=== PATIENT | female | born 1990 | race Two or more races ===

== ENCOUNTER 2019-05-14 20:19 | Inpatient (IN) | payer OTHER ==
[~2019-05-14] VITALS: Ht 167.6 cm; Wt 133.0 kg
[2019-05-14] MEDS ORDERED: IPRATROPIUM BROM 0.5 MG/2.5ML INH SOL HHN ONE (20:30)
[2019-05-14] MEDS ORDERED: methylPREDNISolone SOD SUCC 125 MG/2 ML VL IV ONE (20:30)
[2019-05-14] MEDS ORDERED: ALBUTEROL SULF 2.5 MG/0.5ML(0.5%) NEB SOLN HHN ONE (20:30)
[2019-05-14] MEDS ORDERED: SODIUM CHLORIDE 0.9% 1,000 ML IV ONE (20:30)
[2019-05-14] MEDS ORDERED: TERBUTALINE SULFATE 1 MG/ML 1ML VIAL SC ONE (20:30)
[2019-05-14] MEDS: MAGNESIUM SULFATE 1GM/100ML 100 ML IV SCH ×2 (20:48→21:58)
[2019-05-14 23:27] LABS: Urine Bacteria FEW /hpf (None Seen); Urine Blood Negative /uL (Negative); Urine Mucus FEW (None Seen); Urine Specific Gravity 1.021 (1.001-1.035); Urine WBC 2 /hpf (0 - 5)
[2019-05-15] VITALS (7 sets, daily range): BP systolic 106–132; BP diastolic 53–79
[2019-05-15] MEDS ORDERED: MORPHINE SULF INJ 2 MG/ML SYRINGE 1ML IV PRN (02:45)
[2019-05-15] MEDS ORDERED: ONDANSETRON HCL 4 MG/2 ML VIAL IV PRN (02:45)
[2019-05-15] MEDS ORDERED: NITROGLYCERIN 0.4 MG SL TAB SL PRN (02:45)
[2019-05-15] MEDS ORDERED: TEMAZEPAM 15 MG CAP PO PRN (02:45)
[2019-05-15 03:03] LABS: Basophils # (auto) 0 uL; Basophils % (auto) 0.5 % (0.0-2.0); Eosinophils # (auto) 0 uL; Hematocrit 38.5 % (36.0-46.0); Hemoglobin 13.1 g/dL (12.2-16.2); Lymphocytes # (auto) 0.9 uL; Mean Corpuscular Hemoglobin 29.3 pg (28.0-32.0); Mean Corpuscular Hgb Conc. 34.1 g/dL (32.0-36.0); Mean Corpuscular Volume 86.1 fL (80.0-100.0); Monocytes # (auto) 0.1 uL; Monocytes % (auto) 1.4 % (0.0-12.0); Neutrophils # (auto) 7.4 uL; Neutrophils % (auto) 87.1 % (37.0-80.0); Platelet Count (auto) 211 10^3/uL (140-450); Red Blood Cells 4.47 10^6/uL (4.0-5.20); Red Cell Distribution Width 13.9 % (11.8-14.3); White Blood Cell 8.5 10^3/uL (4.4-10.8)
[2019-05-15 03:22] LABS: Albumin 3.5 g/dL (3.4-5.0); Anion Gap 8 (5-15); Blood Urea Nitrogen 5 mg/dL (7-18); Calcium 8.4 mg/dL (8.5-10.1); Carbon Dioxide 23 mmol/L (21-32); Chloride 108 mmol/L (98-107); Glucose 147 mg/dL (74-106); Potassium 3.6 mmol/L (3.5-5.1); Sodium 139 mmol/L (136-145)
[2019-05-15 03:24] LABS: Alanine Aminotransferase 51 U/L (13-56); Aspartate Aminotransferase 36 U/L (15-37); BUN/Creatinine Ratio 6.1; GFR African American 108 mL/min; GFR Non-African American 90 mL/min
[2019-05-15 03:28] LABS: Alkaline Phosphatase 61 U/L (45-117); Bilirubin, Total 0.3 mg/dL (0.2-1.0); Total Protein 7.6 g/dL (6.4-8.2)
[2019-05-15 03:32] LABS: Alcohol, Urine < 3.0 mg/dL (0-5); Amphetamine Screen, Urine NEGATIVE (NEGATIVE); Barbiturate Scree,Urine NEGATIVE (NEGATIVE); Benzodiazephine Screen, Urine NEGATIVE (NEGATIVE); Cannabinoid Screen, Urine NEGATIVE (NEGATIVE); Cocaine Screen, Urine NEGATIVE (NEGATIVE); Opiate Scree,Urine NEGATIVE (NEGATIVE); Phencyclidine Screen, Urine NEGATIVE (NEGATIVE)
--- NOTE | 2019-05-15 04:35 | NUR ---
Telemetry admit from ER JOE ENRIQUEZ admitted to Telemetry unit. Patient is A&O X's 4 with no s/s of distress noted. Patient reports some SOB and there is audible expiratory wheezing noted. oxygen saturation is at 93% on room air. Breathing treatment is scheduled for 0600. Patient oriented to FRANKY HERNANDEZ RN primary RN, unit, room, bed, and unit policies regarding patient care and visiting hours. Educated patient on POC and to use call light when in need of assistance. Patient verbalized understanding. Patient now on continuous telemetry monitoring, tele box #8 and telemetry reading SR, HR 80's on arrival. All questions and concerns addressed, patient verbalized understanding. patient provided with water, juice, a sandwich and non skid socks. Bed is in lowest/locked position with side rails up X's 2 and call light is within reach of patient.Will continue care.
[2019-05-15] MEDS: IPRATROPIUM BROM 0.5 MG/2.5ML INH SOL NEB SCH ×3 (05:48→18:33)
[2019-05-15] MEDS: ALBUTEROL SULF 2.5 MG/0.5ML(0.5%) NEB SOLN NEB SCH ×3 (05:49→18:33)
--- NOTE | 2019-05-15 06:24 | NUR ---
ROUNDS Patient resting in bed with no s/s of distress of SOB. Respirations are even/unlabored. Will continue care.
--- NOTE | 2019-05-15 07:45 | NUR ---
Opening Shift Note Assumed care of patient, awake and alert. No S/S of distress/SOB or pain. Instructed on POC and to call for assist PRN, will continue to monitor for changes Q1hr and PRN.
--- NOTE | 2019-05-15 09:00 | NUR ---
AMBULATION PATIENT AMBULATED IN ROOM ON ROOM AIR, GAIT IS STEADY AND UPRIGHT. NAD.
[2019-05-15] MEDS: FAMOTIDINE 20 MG TAB PO SCH ×2 (09:26→21:41)
[2019-05-15] MEDS ORDERED: methylPREDNISolone SOD SUCC 125 MG/2 ML VL IV SCH (10:00)
--- NOTE | 2019-05-15 15:39 | NUR ---
TERBUTALINE RECEIVED CALL FROM WALI FROM PHARMACY. PER WALI 1800 MED ORDER FOR TERBUTALINE IS UNAVAILABLE UNTIL TOMORROW. WILL NOTIFY
--- NOTE | 2019-05-15 15:46 | NUR ---
MD LAY UPDATED MD AT [facility]. UPDATED ON TERBUTALINE UNAVAILABLE UNTIL TOMORROW. PER MD THAT IS OK AND NO NEW ORDERS RECEIVED.
[2019-05-15] MEDS: TERBUTALINE SULFATE 5 MG TAB PO SCH (17:39)
--- NOTE | 2019-05-15 19:45 | NUR ---
Opening Shift Note Assumed care of patient, awake and alert. Family at bedside. No S/S of distress/SOB or pain. Bed in lowest locked position, side rails up x2, call light within reach. Instructed on POC and to call for assist PRN, will continue to monitor for changes Q1hr and PRN.
[2019-05-15] MEDS: predniSONE 20 MG TAB PO SCH (21:41)
--- NOTE | 2019-05-16 | NUR ---
Terbutaline Medication still not available, per dayshift RN aware. Will continue to monitor patient.
[2019-05-16] MEDS: ALBUTEROL SULF 2.5 MG/0.5ML(0.5%) NEB SOLN NEB SCH ×4 (00:18→18:39)
[2019-05-16] MEDS: IPRATROPIUM BROM 0.5 MG/2.5ML INH SOL NEB SCH ×4 (00:19→18:39)
--- NOTE | 2019-05-16 00:19 | NUR ---
PRE AND POST PEAK FLOW PRE 250LPM POST ABOUT 300LPM PTS STATES SHE IS GIVING BEST EFFORT BUT IS COMPLAINING ALSO OF THROAT PAIN.
[2019-05-16] MEDS ORDERED: methylPREDNISolone SOD SUCC 125 MG/2 ML VL IV ONE (01:30)
[2019-05-16] MEDS ORDERED: EPINEPHrine HCL 0.5 ML NEB NEB ONE (01:30)
--- NOTE | 2019-05-16 01:43 | NUR ---
Respiratory note: STRIDOR HEARD IN UPPER AIRWAY. AT BEDSIDE FOR AEROSOL RACEPINEPHRINE NEB TX.
--- NOTE | 2019-05-16 02:14 | NUR ---
Hospitalist Paged Patient reporting nose and throat "feel like they're on fire" after epinephrine nebulizer treatment. Patient placed on 2 liters via nasal cannula with humidifier and given room temperature water. callisthenics instructor hospitalist paged, awaiting call back at this time.
--- NOTE | 2019-05-16 03:40 | NUR ---
Rounds Patient lying in bed, eyes closed, respirations even and unlabored, appears asleep. No s/s of distress. No other needs at this time. Will continue to monitor patient. Addendum: 05/16/19 at 0446 by ALONSO ARMENTA RN RN CORRECTION: Time of note should be 03:00.
--- NOTE | 2019-05-16 03:48 | NUR ---
Hospitalist Returned Page boilermaker's assistant hospitalist Kathya Stratton DIRECTOR MONEY returned page at this time, no new orders received, will continue to monitor patient.
[2019-05-16 05:00] VITALS: BP 138/79
[2019-05-16] MEDS: TERBUTALINE SULFATE 5 MG TAB PO SCH ×5 (05:51→23:41)
--- NOTE | 2019-05-16 06:19 | NUR ---
Respiratory note: PEAK FLOW ASSESSMENT: PRE: 150 POST: 170 PATIENT GAVE BEST EFFORT BUT WAS STILL POOR. SHE COMPLAINS OF PAIN WHEN TAKING DEEP BREATH AND THAT IS WHY SHE HAS POOR NUMBERS. PROCEDURE EXPLAINED TO PATIENT AND SHE GAVE THREE ATTEMPTS PRE AND POST MED-NEB TX.
--- NOTE | 2019-05-16 06:51 | NUR ---
Closing Note Patient lying in bed, awake and alert. Bed in lowest locked position, side rails up x2, call light within reach. No s/s of distress. Will endorse care to kunal RN. Addendum: 05/16/19 at 0732 by ALONSO ARMENTA RN RN ADDITION: Spoke with pharmacy, terbutaline not available, should be delivered today around 09:00 for RN to administer ordered 12:00 dose. [facility]
[2019-05-16 07:19] LABS: Basophils # (auto) 0 uL; Basophils % (auto) 0.1 % (0.0-2.0); Eosinophils # (auto) 0 uL; Hematocrit 39.5 % (36.0-46.0); Hemoglobin 13.3 g/dL (12.2-16.2); Lymphocytes # (auto) 1.3 uL; Lymphocytes % (auto) 9.4 % (10.0-50.0); Mean Corpuscular Hemoglobin 29.3 pg (28.0-32.0); Mean Corpuscular Hgb Conc. 33.6 g/dL (32.0-36.0); Mean Corpuscular Volume 87.2 fL (80.0-100.0); Monocytes # (auto) 0.4 uL; Monocytes % (auto) 2.6 % (0.0-12.0); Neutrophils # (auto) 12.1 uL; Neutrophils % (auto) 87.9 % (37.0-80.0); Platelet Count (auto) 240 10^3/uL (140-450); Red Blood Cells 4.53 10^6/uL (4.0-5.20); White Blood Cell 13.7 10^3/uL (4.4-10.8)
--- NOTE | 2019-05-16 07:25 | NUR ---
Opening Shift Note: Assumed care of patient, awake and alert. No S/S of distress/SOB. Patient states "there is some pain when I take a deep breath in." Lung sounds are currently clear. Will continue to assess. Bed in lowest locked position, side rails up x 2, call light within reach. Instructed on POC and to call for assist PRN, will continue to monitor for changes Q1hr and PRN.
[2019-05-16 08:03] LABS: Potassium 4.1 mmol/L (3.5-5.1)
[2019-05-16 08:33] VITALS: BP 131/80
[2019-05-16] MEDS: FAMOTIDINE 20 MG TAB PO SCH ×2 (09:54→21:43)
[2019-05-16] MEDS: predniSONE 20 MG TAB PO SCH (09:54)
--- NOTE | 2019-05-16 12:03 | NUR ---
Respiratory note: PEAK FLOW ASSESSMENT: PRE: 140 POST: 140 PATIENT GAVE BEST EFFORT BUT WAS STILL POOR. SHE COMPLAINS OF PAIN WHEN TAKING DEEP BREATH AND THAT IS WHY SHE HAS POOR NUMBERS. PROCEDURE EXPLAINED TO PATIENT AND SHE GAVE THREE ATTEMPTS PRE AND POST MED-NEB TX.
[2019-05-16 12:13] VITALS: BP 130/76
[2019-05-16] MEDS ORDERED: AZITHROMYCIN 250 MG TAB PO ONE (15:00)
[2019-05-16] MEDS: methylPREDNISolone SOD SUCC 40 MG/ML VL IV SCH ×2 (15:16→21:43)
[2019-05-16 16:45] VITALS: BP 130/56
--- NOTE | 2019-05-16 18:46 | NUR ---
PEAK FLOW ASSESSMENT: PRE: 170 POST: 170 RESULTS WERE OBTAINED WITH BEST EFFORT - THREE ATTEMPTS PRE AND POST MED NEB TX.
--- NOTE | 2019-05-16 19:20 | NUR ---
Opening Shift Note Assumed care of patient, awake and alert. No S/S of distress/SOB or pain. Bed in lowest locked position, side rails up x2, call light within reach. Instructed on POC and to call for assist PRN, will continue to monitor for changes Q1hr and PRN.
[2019-05-16 23:05] VITALS: BP 112/63
[2019-05-17] MEDS: ALBUTEROL SULF 2.5 MG/0.5ML(0.5%) NEB SOLN NEB SCH ×6 (00:10→22:25)
[2019-05-17] MEDS: IPRATROPIUM BROM 0.5 MG/2.5ML INH SOL NEB SCH ×6 (00:10→22:25)
--- NOTE | 2019-05-17 00:17 | NUR ---
PEAK FLOW ASSESSMENT: PRE: 150 POST: 180 RESULTS WERE OBTAINED WITH BEST EFFORT - THREE ATTEMPTS PRE AND POST MED NEB TX.
[2019-05-17] MEDS: TERBUTALINE SULFATE 5 MG TAB PO SCH ×3 (05:31→18:27)
[2019-05-17] MEDS: methylPREDNISolone SOD SUCC 40 MG/ML VL IV SCH ×2 (05:31→14:55)
[2019-05-17 06:11] VITALS: BP 139/85
--- NOTE | 2019-05-17 06:30 | NUR ---
Respiratory note: UNABLE TO PERFORM PEAK FLOW ASSESSMENTS DUE TO PT IN A COUGHING FIT. MED NEB TX GIVEN AND TOLERATED WELL.
--- NOTE | 2019-05-17 06:50 | NUR ---
Hospitalist Paged Respiratory Therapist Rebekah recommending that patient receive breathing treatments more frequently with possible dose of epinephrin to be given as well as patient is not tolerating breathing treatments as ordered. quill layer hospitalist paged, awaiting call back at this time.
--- NOTE | 2019-05-17 07:35 | NUR ---
Closing Note Patient lying in bed, awake and alert. Bed in lowest locked position, side rails up x2, call light within reach. No s/s of distress. Care endorsed to kunal MARKS. Addendum: 05/17/19 at 0748 by ALONSO ARMENTA RN RN ADDITION: Spoke with Rebekah SILVA, she was able to obtain new orders for breathing treatments. Will make kunal MARKS aware.
[2019-05-17] MEDS ORDERED: IPRATROPIUM BROM 0.5 MG/2.5ML INH SOL ONE (07:39)
[2019-05-17] MEDS ORDERED: ALBUTEROL SULF 2.5 MG/0.5ML(0.5%) NEB SOLN ONE (07:39)
[2019-05-17] MEDS ORDERED: ALBUTEROL SULF 2.5 MG/0.5ML(0.5%) NEB SOLN NEB ONE (07:45)
[2019-05-17] MEDS ORDERED: IPRATROPIUM BROM 0.5 MG/2.5ML INH SOL NEB ONE (07:45)
--- NOTE | 2019-05-17 07:45 | NUR ---
Opening Shift Note: Assumed care of patient, awake and alert. patient is short of breath at this time, RT called. New orders obtained for more frequent treatments. Instructed on POC and to call for assist PRN, will continue to monitor for changes Q1hr and PRN.
[2019-05-17 08:35] VITALS: BP 143/90
[2019-05-17] MEDS: AZITHROMYCIN 250 MG TAB PO SCH (10:09)
[2019-05-17] MEDS: FAMOTIDINE 20 MG TAB PO SCH ×2 (10:09→22:21)
--- NOTE | 2019-05-17 10:43 | NUR ---
PEAK FLOW ASSESSMENT NOT DONE AT THIS TIME. PT IS STILL EXPERIENCING IE WHEEZES AND COUGHING FITS. WE WILL ATTEMPT PEAK FLOWS AGAIN AT NEXT [facility] TX.
--- NOTE | 2019-05-17 11:37 | NUR ---
Respiratory note: PEAK FLOW ASSESSMENT: PRE 170 POST 190
[2019-05-17 12:22] VITALS: BP 118/52
[2019-05-17 16:44] VITALS: BP 137/62
[2019-05-17] MEDS: BUDESONIDE (INHALATION) 0.5 MG/2 ML NEB NEB SCH (22:25)
--- NOTE | 2019-05-17 22:25 | NUR ---
Respiratory note: PEAK FLOW ASSESSMENT: PRE TX: 200 POST 200
[2019-05-17 23:22] VITALS: BP 151/61
[2019-05-18] MEDS: TERBUTALINE SULFATE 5 MG TAB PO SCH ×4 (00:09→18:13)
[2019-05-18] MEDS: methylPREDNISolone SOD SUCC 125 MG/2 ML VL IV SCH ×4 (00:09→18:13)
[2019-05-18] MEDS: ALBUTEROL SULF 2.5 MG/0.5ML(0.5%) NEB SOLN NEB SCH ×6 (02:18→22:54)
[2019-05-18] MEDS: IPRATROPIUM BROM 0.5 MG/2.5ML INH SOL NEB SCH ×6 (02:18→22:54)
--- NOTE | 2019-05-18 03:53 | NUR ---
Respiratory note: PEAK FLOW ASSESSMENT: PRE TX: 230 POST TX: 220 Addendum: 05/18/19 at 0354 by RT DOTTIE THIS PEAK FLOW ASSESSMENT WAS DONE ON 05/17/19 AT 1824. DOCUMENTED THE WRONG DATE AND TIME.
[2019-05-18 05:29] VITALS: BP 138/70
--- NOTE | 2019-05-18 06:25 | NUR ---
RT NOTE: PEAK FLOW ASSESSMENT DONE PRE- 140 POST- 140 PT STATES THAT THERE IS NO SIGNIFICANT CHANGE IN SOB AND CHEST DISCOMFORT POST TX. WILL CONTINUE TO MONITOR.
[2019-05-18 06:37] VITALS: BP 138/70
[2019-05-18] MEDS: ACETAMINOPHEN 325 MG TAB PO PRN (06:41)
--- NOTE | 2019-05-18 06:58 | NUR ---
Closing Note Patient lying in bed, awake and alert. Bed in lowest locked position, side rails up x2, call light within reach. Patient having shortness of breath post respiratory treatment, reports pain on inspiration, medicated for pain as ordered. 2 liters oxygen via nasal cannula applied, tolerating well. Will endorse care to dayshift RN and inform RN of patient's current status.
--- NOTE | 2019-05-18 07:43 | NUR ---
Opening Shift Note: Assumed care of patient, awake and alert. Patient is experiencing SOB with movement. Minor pain noted, 2/10 patient states "from coughing." Bed in lowest locked position, side rails up x2, call light within reach. Instructed on POC and to call for assist PRN, will continue to monitor for changes Q1hr and PRN.
[2019-05-18 09:00] VITALS: BP 115/64
[2019-05-18] MEDS: AZITHROMYCIN 250 MG TAB PO SCH (09:24)
[2019-05-18] MEDS: FAMOTIDINE 20 MG TAB PO SCH ×2 (09:24→22:34)
[2019-05-18] MEDS: BUDESONIDE (INHALATION) 0.5 MG/2 ML NEB NEB SCH ×2 (10:17→18:23)
--- NOTE | 2019-05-18 10:35 | NUR ---
RT NOTE: PEAK FLOW ASSESSMENT PRE-180 POST-150 WILL CONTINUE TO MONITOR.
[2019-05-18 13:00] VITALS: BP 124/69
--- NOTE | 2019-05-18 13:51 | NUR ---
PEAK FLOW: PRE: 180 POST:180 GOOD PT EFFORT. WILL CONTINUE TO MONITOR.
--- NOTE | 2019-05-18 15:07 | NUR ---
NUTRITION ASSESSMENT NOTES Please refer to link notes of nutrition screen form filed under the intervention section of the plan of care for further details. Est. Needs based on AdBW (76 kg): 1900 kcal to 2300 kcal (25-30 kcal/kgAdBW), 76 gms to 91 gms pro (1.0-1.2 gms/kgBW). Will continue to monitor pertinent labs and reassess nutrient need prn Thank you. Addendum: 05/18/19 at [address] Amended: Links added.
[2019-05-18 17:00] VITALS: BP 129/68
--- NOTE | 2019-05-18 18:23 | NUR ---
Respiratory note: PEAK FLOW DONE BY PT WITH GOOD EFFORT PRE PF 200/ POST PF 210. PT CURRENTLY ON RA, SPO2 94%, HR 89, RR 22. BS GOOD AERATION WITH FAINT WHEEZES.
--- NOTE | 2019-05-18 19:10 | NUR ---
OPENING NOTE- NOC SHIFT PATIENT IS ALERT AND ORIENTED X4 ANSWERS IN COMPLETE SENTENCES AND MAKES APPROPRIATE EYE CONTACT. PATIENT IS IN BED, BED IS LOCKED AT LOWEST POSITION, BED RAILS UP X2 AND HEAD OF BED IS UP >30 DEGREES FOR SAFETY PRECAUTIONS. BEDSIDE TABLE WITHIN REACH, CALL LIGHT WITHIN REACH. DISCUSSED POC WITH PATIENT AND INSTRUCTED PATIENT TO CALL PRN; PATIENT VERBALIZED UNDERSTANDING. WILL CONTINUE TO MONITOR Q1H AND PRN.
[2019-05-18 22:00] VITALS: BP 126/64
--- NOTE | 2019-05-18 22:54 | NUR ---
Respiratory note: PEAK FLOW DONE BY PT WITH GOOD EFFORT PRE PF 210/ POST PF 210. PT REMAINS ON RA, SPO2 94%, HR 97, RR 20. BS GOOD AERATION WITH FAINT WHEEZES, PT STATES SHE IS FEELING BETTER FROM TX'S.
--- NOTE | 2019-05-18 23:00 | NUR ---
ROUNDS PATIENT IS SITTING UP IN BED TALKING ON HER PERSONAL PHONE. NO S/SX OF DISTRESS, SOB OR PAIN NOTED. WILL CONTINUE TO MONITOR Q1H AND PRN.
[2019-05-19] MEDS: TERBUTALINE SULFATE 5 MG TAB PO SCH ×5 (00:22→23:58)
[2019-05-19] MEDS: methylPREDNISolone SOD SUCC 125 MG/2 ML VL IV SCH ×5 (00:22→23:58)
[2019-05-19] MEDS: ALBUTEROL SULF 2.5 MG/0.5ML(0.5%) NEB SOLN NEB SCH ×6 (02:18→22:42)
[2019-05-19] MEDS: IPRATROPIUM BROM 0.5 MG/2.5ML INH SOL NEB SCH ×6 (02:18→22:42)
--- NOTE | 2019-05-19 02:18 | NUR ---
Respiratory note: PT SLEEPING AT THIS TIME. PT WOKE UP FOR TX. PT DID NOT WANT TO DO PEAK FLOW AT THIS TIME. NO RESP DISTRESS NOTED. SPO2 ON RA 92%, HR 88, RR 22. BS HAVE GOOD AERATION WITH A FAINT WHEEZE AT THIS TIME.
[2019-05-19 05:00] VITALS: BP 131/72
--- NOTE | 2019-05-19 06:23 | NUR ---
RT NOTE: PT UNABLE TO DO PEAK FLOW ASSESSMENT DUE TO EXCESSIVE COUGHING AND SOB. WILL CONTINUE TO MONITOR.
--- NOTE | 2019-05-19 07:15 | NUR ---
Opening Shift Note Received report and assumed care of patient, awake,alert and oriented. No S/S of distress/SOB or pain. Instructed on POC and nursing routines,to call for assistance as needed,call light within reach.will continue to monitor for changes Q1hr and PRN.
--- NOTE | 2019-05-19 07:15 | NUR ---
ENDORSED PATIENT CARE TO DAY SHIFT NURSE DEJAH MARKS NO S/SX OF DISTRESS OR SOB.
[2019-05-19 09:00] VITALS: BP 138/81
[2019-05-19] MEDS: BUDESONIDE (INHALATION) 0.5 MG/2 ML NEB NEB SCH ×2 (09:37→22:42)
[2019-05-19] MEDS: FAMOTIDINE 20 MG TAB PO SCH ×2 (09:46→21:34)
[2019-05-19] MEDS: AZITHROMYCIN 250 MG TAB PO SCH (09:46)
--- NOTE | 2019-05-19 09:52 | NUR ---
RT NOTE: PEAK FLOW ASSESSMENT PRE-210 POST-210 RN BEDSIDE. WILL CONTINUE TO MONITOR.
[2019-05-19 13:00] VITALS: BP 145/70
--- NOTE | 2019-05-19 13:49 | NUR ---
RT NOTE: PEAK FLOW ASSESSMENT PRE-230 POST-230 WILL CONTINUE TO MONITOR.
[2019-05-19] MEDS: ACETAMINOPHEN 325 MG TAB PO PRN ×2 (14:35→20:30)
[2019-05-19] MEDS: ENOXAPARIN SOD 40 MG/0.4 ML SYRINGE SC SCH ×2 (16:02→21:34)
[2019-05-19 17:00] VITALS: BP 128/57
--- NOTE | 2019-05-19 18:39 | NUR ---
PK FLOW ASSESSMENT PRE 240 POST 230 EACH TRIAL WAS WITH GOOD EFFORT. PT MAY BENEFIT FROM INCREASE IN BRONCHODILATOR.
--- NOTE | 2019-05-19 19:05 | NUR ---
OPENING SHIFT NOTE PATIENT IS ALERT AND ORIENTED, ANSWERS IN COMPLETE SENTENCES AND MAKES APPROPRIATE EYE CONTACT. PATIENT IS IN BED, BED IS LOCKED IN LOWEST POSITION, BED RAILS UP X2 AND HEAD OF BED IS UP >30 DEGREES FOR SAFETY PRECAUTIONS. DISCUSSED POC WITH PATIENT AND INSTRUCTED PATIENT TO CALL PRN; PATIENT VERBALIZED UNDERSTANDING. WILL CONTINUE TO MONITOR Q1H AND PRN.
--- NOTE | 2019-05-19 19:20 | NUR ---
STATUS UNCHANGED NO DISTRESS NO DISCOMFORT,REPORT GIVEN TO INCOMING NOC SHIFT RN.
[2019-05-19 22:00] VITALS: BP 138/75
--- NOTE | 2019-05-19 22:42 | NUR ---
PF ASSESSMENT PRE 150 POST 180 GOOD EFFORT
[2019-05-20] MEDS: ALBUTEROL SULF 2.5 MG/0.5ML(0.5%) NEB SOLN NEB SCH ×6 (03:08→22:13)
[2019-05-20] MEDS: IPRATROPIUM BROM 0.5 MG/2.5ML INH SOL NEB SCH ×6 (03:09→22:13)
[2019-05-20 05:04] VITALS: BP 138/73
[2019-05-20] MEDS: TERBUTALINE SULFATE 5 MG TAB PO SCH ×3 (05:54→17:47)
[2019-05-20] MEDS: methylPREDNISolone SOD SUCC 125 MG/2 ML VL IV SCH ×3 (05:54→17:48)
--- NOTE | 2019-05-20 07:15 | NUR ---
Opening Shift Note Received report and assumed care,patient checked awake,alert.and oriented No S/S of distress/SOB or pain. Instructed on POC and nursing routines,to call for assistance as needed,call light within reach,will continue to monitor for changes Q1hr and PRN.
--- NOTE | 2019-05-20 07:23 | NUR ---
Respiratory note: PEAK FLOW ASSESSMENT PRE 170 POST 180 GOOD EFFORT GIVEN BY PATIENT.
[2019-05-20 09:00] VITALS: BP 141/79
[2019-05-20] MEDS: AZITHROMYCIN 250 MG TAB PO SCH (10:22)
[2019-05-20] MEDS: ENOXAPARIN SOD 40 MG/0.4 ML SYRINGE SC SCH ×2 (10:22→21:50)
[2019-05-20] MEDS: FAMOTIDINE 20 MG TAB PO SCH ×2 (10:23→21:50)
[2019-05-20] MEDS: BUDESONIDE (INHALATION) 0.5 MG/2 ML NEB NEB SCH ×2 (10:51→19:02)
--- NOTE | 2019-05-20 10:51 | NUR ---
Respiratory note: PEAK FLOW ASSESSMENT PRE 210 POST 210 GOOD EFFORT GIVEN BY PATIENT.
[2019-05-20 13:00] VITALS: BP 120/53
--- NOTE | 2019-05-20 13:51 | NUR ---
Respiratory note: PEAK FLOW ASSESSMENT PRE 200 POST 210 GOOD EFFORT GIVEN BY PATIENT.
--- NOTE | 2019-05-20 14:35 | NUR ---
MD VISIT DR. AMEZCUA HERE TO SEE AND EXAMINED PATIENT,EXPLAIN TO PATIENT DISEASE PROCESS, PLAN OF CARE AND MEDICATIONS NEEDED UPON DISCHARGE,. PATIENT VERBALIZED UNDERSTANDING.
--- NOTE | 2019-05-20 15:49 | NUR ---
DR. GOLD CALLED AND INFORMED OF DR. STEEN MEDICATION RECOMMENDATION FOR DISCHARGE AND CLEARANCE FOR DISCHARGE.
[2019-05-20 17:00] VITALS: BP 130/70
--- NOTE | 2019-05-20 19:02 | NUR ---
Respiratory note: PEAK FLOW ASSESSMENT; PRE-230/ POST-240
--- NOTE | 2019-05-20 19:30 | NUR ---
Opening Shift Note Assumed care of patient, awake and alert, resting in bed comfortably. Patient on room air. No S/S of distress/SOB or pain. Instructed on POC and to call for assist PRN, will continue to monitor for changes Q1hr and PRN.
[2019-05-20 22:00] VITALS: BP 135/70
--- NOTE | 2019-05-20 22:23 | NUR ---
Respiratory note: PEAK FLOW: PRE-200 / POST-210
[2019-05-21] MEDS: TERBUTALINE SULFATE 5 MG TAB PO SCH ×3 (00:05→13:07)
[2019-05-21] MEDS: IPRATROPIUM BROM 0.5 MG/2.5ML INH SOL NEB SCH ×4 (02:08→13:57)
[2019-05-21] MEDS: ALBUTEROL SULF 2.5 MG/0.5ML(0.5%) NEB SOLN NEB SCH ×4 (02:08→13:57)
--- NOTE | 2019-05-21 02:18 | NUR ---
Respiratory note: PEAK FLOW: PRE-200 / POST-230
[2019-05-21 05:00] VITALS: BP 129/75
--- NOTE | 2019-05-21 06:04 | NUR ---
Respiratory note: PEAK FLOW: PRE 200, POST 220
[2019-05-21 08:00] VITALS: BP 136/78
[2019-05-21] MEDS ORDERED: predniSONE 20 MG TAB PO SCH (10:00)
[2019-05-21] MEDS: BUDESONIDE (INHALATION) 0.5 MG/2 ML NEB NEB SCH (10:04)
--- NOTE | 2019-05-21 10:04 | NUR ---
Respiratory note: PEAK FLOW: PRE 230, POST 250
[2019-05-21] MEDS: FAMOTIDINE 20 MG TAB PO SCH (10:29)
[2019-05-21] MEDS: AZITHROMYCIN 250 MG TAB PO SCH (10:29)
[2019-05-21] MEDS: ENOXAPARIN SOD 40 MG/0.4 ML SYRINGE SC SCH (10:30)
[2019-05-21 12:00] VITALS: BP 133/63
--- NOTE | 2019-05-21 13:57 | NUR ---
Respiratory note: PEAK FLOW: PRE 220, POST 220
[2019-05-21 16:04] VITALS: BP 133/63
--- NOTE | 2019-05-21 17:06 | NUR ---
ALL DISCHARGE PAPERWORK AND INSTRUCTIONS GIVEN TO PT. PT VERBALIZED UNDERSTANDING FOR F/U APPT AND MEDICATIONS. RECEIVED MEDS FROM PHARMACY. PT AMBULATED OUT OF FACILITY INDEPENDENTLY, ACCOMPANIED BY FAMILY MEMBER.
== END 2019-05-21 17:00 | disposition home or self-care (01) | DRG 141 ==
LOC: ER 20:25 → TELE 20:26 → TELE-EAST 05-15 04:37
PROVIDERS: ADMIT Nurse Practitioner; ATTEND Internal Medicine Nephrology
DX: J45.51 Severe persistent asthma with (acute) exacerbation (principal); E11.65 Type 2 diabetes mellitus with hyperglycemia; E66.01 Morbid (severe) obesity due to excess calories; N39.0 Urinary tract infection, site not specified; F17.210 Nicotine dependence, cigarettes, uncomplicated; J98.11 Atelectasis; I10 Essential (primary) hypertension; Z82.49 Family history of ischemic heart disease and other diseases of the circulatory system; Z71.6 Tobacco abuse counseling; Z68.42 Body mass index [BMI] 45.0-49.9, adult; Z79.899 Other long term (current) drug therapy; R06.03 Acute respiratory distress
CPT/HCPCS: 36415; 71045; 80048; 80053; 80307; 81001; 81025; 83036; 84484; 85025; 93005; 94010; 94640; 94644; 96361; 96365; 96372; 96375; G0378

== ENCOUNTER 2019-10-08 13:12 | Emergency (ER) | payer OTHER ==
[~2019-10-08] VITALS: Ht 165.1 cm; Wt 130.6 kg
[2019-10-08] MEDS ORDERED: KETOROLAC TROMETH 60MG/2ML VIAL IM ONE (15:15)
[2019-10-08 17:10] VITALS: BP 126/80
== END 2019-10-08 17:31 | disposition home or self-care (01) ==
LOC: ER 13:12
DX: S39.012A Strain of muscle, fascia and tendon of lower back, initial encounter (principal); N83.201 Unspecified ovarian cyst, right side; K76.0 Fatty (change of) liver, not elsewhere classified; J45.909 Unspecified asthma, uncomplicated; F17.210 Nicotine dependence, cigarettes, uncomplicated; X58.XXXA Exposure to other specified factors, initial encounter; Y93.89 Activity, other specified; Y92.89 Other specified places as the place of occurrence of the external cause; Y99.8 Other external cause status
CPT/HCPCS: 74176; 81002; 81025; 96372; 99284; J1885

== ENCOUNTER 2020-07-06 09:52 | Emergency (ER) | payer OTHER ==
[~2020-07-06] VITALS: Ht 167.6 cm; Wt 117.9 kg
[2020-07-06 10:22] VITALS: BP 148/61
== END 2020-07-06 13:24 | disposition home or self-care (01) ==
LOC: ER 09:52
DX: G56.01 Carpal tunnel syndrome, right upper limb (principal); F41.9 Anxiety disorder, unspecified; F17.210 Nicotine dependence, cigarettes, uncomplicated; J45.909 Unspecified asthma, uncomplicated
CPT/HCPCS: 29125

== ENCOUNTER 2021-01-21 16:17 | Emergency (ER) | payer OTHER ==
[~2021-01-21] VITALS: Ht 167.6 cm; Wt 136.1 kg
[2021-01-21 21:46] LABS: Urine Bacteria NONE SEEN /hpf (None Seen); Urine Blood Negative /uL (Negative); Urine Mucus FEW (None Seen); Urine Specific Gravity 1.026 (1.001-1.035); Urine WBC 3 /hpf (0 - 5)
[2021-01-21] MEDS ORDERED: IPRATROPIUM BROM 0.5 MG/2.5ML INH SOL NEB ONE (22:00)
[2021-01-21] MEDS ORDERED: ALBUTEROL SULF 2.5 MG/0.5ML(0.5%) NEB SOLN NEB ONE (22:00)
[2021-01-21] MEDS ORDERED: predniSONE 20 MG TAB PO ONE (22:00)
[2021-01-22 03:00] VITALS: BP 130/82
== END 2021-01-22 03:23 | disposition home or self-care (01) ==
LOC: ER 16:17
DX: J45.909 Unspecified asthma, uncomplicated (principal); F17.210 Nicotine dependence, cigarettes, uncomplicated; Z33.1 Pregnant state, incidental; Z20.822 Contact with and (suspected) exposure to COVID-19
CPT/HCPCS: 36415; 71045; 81001; 81025; 84702; 87426; 94640; 99285; J7512; J7644

== ENCOUNTER 2021-03-03 21:40 | Observation (INO) | payer OTHER ==
[~2021-03-03] VITALS: Ht 165.1 cm; Wt 131.1 kg
[2021-03-03] MEDS ORDERED: LACTATED RINGER'S 1,000 ML IV SCH (22:45)
[2021-03-03] MEDS ORDERED: LACTATED RINGER'S 1,000 ML IV ONE (22:45)
[2021-03-03] MEDS ORDERED: TERBUTALINE SULFATE 1 MG/ML 1ML VIAL SC SCH (22:45)
[2021-03-03 22:59] LABS: Urine Bacteria FEW /hpf (None Seen); Urine Blood Negative /uL (Negative); Urine Specific Gravity 1.014 (1.001-1.035); Urine WBC 15 /hpf (0 - 5)
[2021-03-03 23:06] LABS: Alcohol, Urine < 3.0 mg/dL (0-10); Amphetamine Screen, Urine NEGATIVE (NEGATIVE); Benzodiazephine Screen, Urine NEGATIVE (NEGATIVE); Cannabinoid Screen, Urine NEGATIVE (NEGATIVE); Cocaine Screen, Urine NEGATIVE (NEGATIVE); Opiate Scree,Urine NEGATIVE (NEGATIVE); Phencyclidine Screen, Urine NEGATIVE (NEGATIVE)
[2021-03-03 23:10] LABS: Barbiturate Scree,Urine NEGATIVE (NEGATIVE)
[2021-03-04] MEDS ORDERED: ceFAZolin 1GM/50ML 50 ML IV ONE (00:30)
[2021-03-04] MEDS ORDERED: PREN-96 PO (00:50)
[2021-03-04] MEDS ORDERED: NITR-52 PO (00:50)
== END 2021-03-04 01:12 | disposition home or self-care (01) ==
LOC: LDRP 21:40
PROVIDERS: ADMIT Obstetrics & Gynecology; ATTEND Obstetrics & Gynecology
DX: O26.893 Other specified pregnancy related conditions, third trimester (principal); R10.9 Unspecified abdominal pain; O34.63 Maternal care for abnormality of vagina, third trimester; N89.8 Other specified noninflammatory disorders of vagina; Z3A.30 30 weeks gestation of pregnancy; Z79.899 Other long term (current) drug therapy
CPT/HCPCS: 59025; 80307; 81001; 81002; 84112; 94760; 96361; 96365; 96372; G0378; J0690; J3105; Q0114; 96360

== ENCOUNTER 2021-03-11 23:40 | Observation (INO) | payer OTHER ==
[~2021-03-11] VITALS: Ht 167.6 cm; Wt 133.8 kg
[~2021-03-11 23:40] MED LIST: NITR-52 PO; PREN-96 PO
[2021-03-12] MEDS ORDERED: LACTATED RINGER'S 1,000 ML IV ONE
[2021-03-12] MEDS ORDERED: TERBUTALINE SULFATE 1 MG/ML 1ML VIAL SC SCH (00:30)
== END 2021-03-12 02:57 | disposition home or self-care (01) ==
LOC: LDRP 23:40
PROVIDERS: ADMIT Obstetrics & Gynecology; ATTEND Obstetrics & Gynecology
DX: O26.893 Other specified pregnancy related conditions, third trimester (principal); R55 Syncope and collapse; H53.8 Other visual disturbances; R51.9 Headache, unspecified; O62.9 Abnormality of forces of labor, unspecified; O21.2 Late vomiting of pregnancy; Z3A.31 31 weeks gestation of pregnancy
CPT/HCPCS: 59025; 76805; 76817; 81002; 82948; 94760; 96360; 96361; 96372; G0378; J3105

== ENCOUNTER 2021-04-23 15:10 | Inpatient (IN) | payer OTHER ==
[~2021-04-23] VITALS: Ht 167.6 cm; Wt 142.0 kg
[2021-04-23 16:08] LABS: Basophils # (auto) 0.1 10 ^3/uL (0-0.2); Basophils % (auto) 0.7 % (0.0-2.0); Eosinophils # (auto) 0.1 10 ^3/uL (0-0.8); Hematocrit 32.2 % (36.0-46.0); Hemoglobin 10.7 g/dL (12.2-16.2); Lymphocytes # (auto) 1.9 10 ^3/uL (0.4-5.4); Lymphocytes % (auto) 19.7 % (10.0-50.0); Mean Corpuscular Hemoglobin 26.7 pg (28.0-32.0); Mean Corpuscular Hgb Conc. 33.2 g/dL (32.0-36.0); Mean Corpuscular Volume 80.3 fL (80.0-100.0); Monocytes # (auto) 0.5 10 ^3/uL (0-1.3); Monocytes % (auto) 4.9 % (0.0-12.0); Neutrophils # (auto) 6.9 10 ^3/uL (1.6-8.6); Neutrophils % (auto) 73.7 % (37.0-80.0); Red Blood Cells 4.01 10^6/uL (4.0-5.20); Red Cell Distribution Width 14.7 % (11.8-14.3); White Blood Cell 9.4 10^3/uL (4.4-10.8)
[2021-04-23 16:19] LABS: Urine Bacteria NONE SEEN /hpf (None Seen); Urine Blood Negative /uL (Negative); Urine WBC 10 /hpf (0 - 5)
[2021-04-23 16:24] LABS: Albumin 2.1 g/dL (3.4-5.0); Calcium 8.4 mg/dL (8.5-10.1); Potassium 3.8 mmol/L (3.5-5.1)
[2021-04-23 16:27] LABS: BUN/Creatinine Ratio 8.2; Bilirubin, Total 0.2 mg/dL (0.2-1.0); INR 0.99 (0.9-1.15); Partial Thromboplastin Time 26.5 sec (23.6-33.0); Total Protein 6.4 g/dL (6.4-8.2); Uric Acid 6.2 mg/dL (2.6-6.0)
[2021-04-23 16:30] LABS: Amphetamine Screen, Urine NEGATIVE (NEGATIVE); Barbiturate Scree,Urine NEGATIVE (NEGATIVE); Benzodiazephine Screen, Urine NEGATIVE (NEGATIVE); Cannabinoid Screen, Urine NEGATIVE (NEGATIVE); Cocaine Screen, Urine NEGATIVE (NEGATIVE); Opiate Scree,Urine NEGATIVE (NEGATIVE); Phencyclidine Screen, Urine NEGATIVE (NEGATIVE); Protein, Urine 35.2 mg/dL (0.0-11.9)
[2021-04-23] MEDS ORDERED: ONDANSETRON HCL 4 MG/2 ML VIAL IV STA (17:05)
[2021-04-23] MEDS ORDERED: LACTATED RINGER'S 1,000 ML IV SCH (17:15)
[2021-04-23] MEDS ORDERED: diphenhdrAMINE HCL 50 MG/1 ML VL IV ONE (20:15)
== END 2021-04-23 20:49 | disposition short-term general hospital (02) | DRG 566 ==
LOC: LDRP 15:10 → OBSVTOIN 19:01
PROVIDERS: ADMIT Obstetrics & Gynecology; ATTEND Obstetrics & Gynecology
DX: O34.211 Maternal care for low transverse scar from previous cesarean delivery (principal); O11.3 Pre-existing hypertension with pre-eclampsia, third trimester; E66.01 Morbid (severe) obesity due to excess calories; Z20.822 Contact with and (suspected) exposure to COVID-19; O99.213 Obesity complicating pregnancy, third trimester; Z3A.37 37 weeks gestation of pregnancy
CPT/HCPCS: 36415; 59025; 76805; 76818; 80053; 80307; 81001; 81002; 82570; 82575; 82948; 82962; 84156; 84550; 85025; 85362; 85379; 85610; 85730; 86850; 86900; 86901; 87426; 96360; 96361; 96374; G0378; J2405